=== PATIENT | female | born 1945 | race Caucasian/White ===

== ENCOUNTER 2018-05-03 05:44 | Emergency (ER) | payer MEDICARE, BC ==
[2018-05-03] MEDS ORDERED: Hyoscyamine 0.125 MG Tab.SL SL ONE (06:07)
[2018-05-03] MEDS ORDERED: Aluminum Hydroxide/Magnesium Hydroxide/Simethicone Susp 30 ML Cup PO ONE (06:07)
--- NOTE | 2018-05-03 06:08 | EDM.PDOC ---
<Gil Gallegos - Last Filed: 05/03/18 16:55> ED HPI GENERAL MEDICAL PROBLEM - General Chief Complaint: Chest Pain Stated Complaint: CHEST PAINS Time Seen by Provider: 05/03/18 05:55 - Related Data Allergies Allergy/AdvReac Type Severity Reaction Status Date / Time Penicillins Allergy Rash Verified 05/03/18 08:29 Home Meds: Home Meds Chlorthalidone 25 mg PO DAILY 05/03/18 [History] Losartan [Cozaar] 50 mg PO DAILY 05/03/18 [History] Oxybutynin 5 mg PO DAILY 05/03/18 [History] Course - Vital Signs Last Recorded V/S: Last Vital Signs Temp 36.7 C 05/03/18 05:51 Pulse 53 L 05/03/18 05:51 Resp 18 05/03/18 05:51 BP 160/73 H 05/03/18 05:51 Pulse Ox 96 05/03/18 05:51 - Orders/Labs/Meds Orders: Active Orders 24 hr Category Date Time Status EKG Documentation Completion [RC] STAT Care 05/03/18 06:06 Active Labs: Laboratory Tests 05/03/18 05/03/18 05/03/18 Range/Units 06:35 06:35 06:35 WBC 10.46 H (3.98-10.04) K/mm3 RBC 4.70 (3.98-5.22) M/mm3 Hgb 13.5 (11.2-15.7) gm/L Hct 41.0 (34.1-44.9) % MCV 87.2 (79.4-94.8) fl MCH 28.7 (25.6-32.2) pg MCHC 32.9 (32.2-35.5) g/dl RDW Std Deviation 51.8 H (36.4-46.3) fL Plt Count 235 (182-369) K/mm3 MPV 9.7 (9.4-12.3) fl Neutrophils % (Manual) 65 H (40-60) % Band Neutrophils % 0 (0-10) % Lymphocytes % (Manual) 26 (20-40) % Atypical Lymphs % 0 % Monocytes % (Manual) 2 (2-10) % Eosinophils % (Manual) 5 (0.7-5.8) % Basophils % (Manual) 2 H (0.1-1.2) Platelet Estimate Adequate Plt Morphology Comment Normal RBC Morph Comment Normal PT 10.7 (9.5-12.1) SECONDS INR 0.98 Sodium 142 (136-145) mEq/L Potassium 3.3 L (3.5-5.1) mEq/L Chloride 104 (98-107) mEq/L Carbon Dioxide 28 (21-32) mEq/L Anion Gap 13.3 (5-15) BUN 25 H (7-18) mg/dL Creatinine 1.0 (0.55-1.02) mg/dL Est Cr Clr Drug Dosing 39.04 mL/min Estimated GFR (MDRD) 54 (>60) mL/min BUN/Creatinine Ratio 25.0 H (14-18) Glucose 124 H (83-115) mg/dL Calcium 9.4 (8.5-10.1) mg/dL Magnesium 1.9 (1.8-2.4) mg/dl Total Bilirubin 0.5 (0.2-1.0) mg/dL AST 15 (15-37) U/L ALT 19 (14-59) U/L Alkaline Phosphatase 79 (46-116) U/L CK-MB (CK-2) 0.8 (0-3.6) ng/ml Troponin I < 0.017 (0.00-0.056) ng/mL C-Reactive Protein 0.6 (<1.0) mg/dL NT-Pro-B Natriuret Pep (0-125) pg/mL Total Protein 7.2 (6.4-8.2) g/dl Albumin 3.4 (3.4-5.0) g/dl Globulin 3.8 gm/dL Albumin/Globulin Ratio 0.9 L (1-2) 05/03/18 05/03/18 Range/Units 06:35 09:45 WBC (3.98-10.04) K/mm3 RBC (3.98-5.22) M/mm3 Hgb (11.2-15.7) gm/L Hct (34.1-44.9) % MCV (79.4-94.8) fl MCH (25.6-32.2) pg MCHC (32.2-35.5) g/dl RDW Std Deviation (36.4-46.3) fL Plt Count (182-369) K/mm3 MPV (9.4-12.3) fl Neutrophils % (Manual) (40-60) % Band Neutrophils % (0-10) % Lymphocytes % (Manual) (20-40) % Atypical Lymphs % % Monocytes % (Manual) (2-10) % Eosinophils % (Manual) (0.7-5.8) % Basophils % (Manual) (0.1-1.2) Platelet Estimate Plt Morphology Comment RBC Morph Comment PT (9.5-12.1) SECONDS INR Sodium (136-145) mEq/L Potassium (3.5-5.1) mEq/L Chloride (98-107) mEq/L Carbon Dioxide (21-32) mEq/L Anion Gap (5-15) BUN (7-18) mg/dL Creatinine (0.55-1.02) mg/dL Est Cr Clr Drug Dosing mL/min Estimated GFR (MDRD) (>60) mL/min BUN/Creatinine Ratio (14-18) Glucose (83-115) mg/dL Calcium (8.5-10.1) mg/dL Magnesium (1.8-2.4) mg/dl Total Bilirubin (0.2-1.0) mg/dL AST (15-37) U/L ALT (14-59) U/L Alkaline Phosphatase (46-116) U/L CK-MB (CK-2) 0.7 (0-3.6) ng/ml Troponin I < 0.017 (0.00-0.056) ng/mL C-Reactive Protein (<1.0) mg/dL NT-Pro-B Natriuret Pep 119 (0-125) pg/mL Total Protein (6.4-8.2) g/dl Albumin (3.4-5.0) g/dl Globulin gm/dL Albumin/Globulin Ratio (1-2) Meds: Medications Discontinued Medications Generic Name Dose Route Start Last Admin Trade Name Diazq PRN Reason Stop Dose Admin Al Hydroxide/Mg Hydroxide 30 ml 05/03/18 06:07 05/03/18 06:31 Mag-Al Plus PO 05/03/18 06:08 30 ml ONETIME ONE Administration Hyoscyamine 0.125 mg 05/03/18 06:07 05/03/18 06:31 Hyomax-Sl SL 05/03/18 06:08 0.125 mg ONETIME ONE Administration - Re-Assessments/Exams Free Text/Narrative Re-Assessment/Exam: 05/03/18 08:00. have assumed care from Dr Hernandes after change of shift. I agree with his hx and exam as documented. Her trop, CXR normal. Repeat trop planned for 9:30. 05/03/18 16:55. Repeat troponin also did come back normal, discharge instructions as documented Departure - Departure Time of Disposition: 11:40 Disposition: Home, Self-Care 01 Condition: Fair Clinical Impression: Atypical chest pain Instructions: Nonspecific Chest Pain, [id number] Referrals: Jamie Whiting MD [Primary Care Provider] - Forms: ED Department Discharge Additional Instructions: Continue baby aspirin and other medications as previously prescribed, follow up with Yenny Bailon at the clinic in 2-3 days to get results of your cardiac stress test today. Call for appointment. Return to ED as needed if symptoms worsening in any way. - My Orders Last 24 Hours: My Active Orders 05/03/18 06:06 EKG Documentation Completion [RC] STAT - Assessment/Plan Last 24 Hours: My Active Orders 05/03/18 06:06 EKG Documentation Completion [RC] STAT <Roderick Hernandes - Last Filed: 05/03/18 19:06> ED HPI GENERAL MEDICAL PROBLEM - General Source of Information: Reports: Patient History Limitations: Reports: No Limitations - History of Present Illness INITIAL COMMENTS - FREE TEXT/NARRATIVE: 72-year-old female presents to the ED after experiencing transient retrosternal chest heaviness with a bit of a burning component at about 0530 hrs. this morning. Patient states she couldn't sleep most the night was very restless and uncomfortable. She is booked for an ECG stress test as part of a preoperative assessment this morning at 0645 hrs. The chest pain lasted less than 5 minutes. Really gone upon arriving in the ED. There was associated burping and belching that seemed to help relieve the discomfort. Patient doesn't know she has a hiatal hernia or not. She does get heartburn periodically. She quit smoking cigarettes for the last time about 2 months ago. Before that she had stopped for only about a year. Has a [id number] history of smoking. Apparently on her preoperative assessment her ECG was abnormal suggesting possibility of an old anteroseptal myocardial infarction and therefore ECG stress test recommended. 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 Shultz urologist in [place]. She denies excessive cough or sputum production. Onset: Today Onset Date: 05/03/18 Onset Time: 05:30 (This is right when her alarm clock went off.) Duration: Minutes: Location: Reports: Chest Quality: Reports: Burning (Lower retrosternal chest pressure discomfort with a burning quality to the pain), Pressure Severity: Moderate Improves with: Reports: Other (It went away within about 5 minutes of onset. Socially burping and belching according to the daughter) Worsens with: Reports: None Context: Reports: Other (Occurred while laying flat in bed.). Denies: Activity , Exercise, Lifting, Sick Contact, Trauma Associated Symptoms: Reports: Cough, cough w sputum (Has a chronic cough.), Shortness of Breath, Weakness. 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 Denies: Fever, Chills, Decreased Appetite, Weight Loss HEENT: Reports: Glasses Respiratory: Reports: Shortness of Breath, Wheezing, Cough, Sputum. Denies: Pleuritic Chest Pain, Hemoptysis (Lu sputum production mostly whitish.) Cardiovascular: Reports: Chest Pain, Blood Pressure Problem (See history of present illness), Dyspnea on Exertion (Chronically). Denies: Claudication, Edema, Lightheadedness, Orthopnea ( chronic hypertension) Endocrine: Reports: Fatigue GI/Abdominal: Reports: Constipation : Reports: Incontinence (Urge incontinence.), Urgency Musculoskeletal: Reports: Back Pain (Chronic low back pain), Joint Pain ( Occasional pain in her knees and left hip.) Skin: Reports: No Symptoms Neurological: Reports: No Symptoms Psychiatric: Reports: No Symptoms ED EXAM, GENERAL - Physical Exam Exam: See Below Exam Limited By: No Limitations General Appearance: Alert, WD/WN, Anxious (Mildly anxious. She hates IV sticks.) Eye Exam: Bilateral Eye: Normal Inspection Throat/Mouth: Other Head: Atraumatic, Normocephalic Neck: Normal Inspection, Supple, Non-Tender, Full Range of Motion. No: Carotid Bruit, Lymphadenopathy (L), Lymphadenopathy (R) Respiratory/Chest: No Respiratory Distress, No Accessory Muscle Use, Wheezing ( Mild inspiratory and expiratory wheezes.). No: Lungs Clear, Normal Breath Sounds, Chest Non-Tender, Rales, Rhonchi Cardiovascular: Regular Rate, Rhythm, No Edema, No Gallop, No Murmur, No Rub. No: Normal Peripheral Pulses Peripheral Pulses: 1+: Posterior Tibial (L), Posterior Tibial (R), Dorsalis Pedis (L), Dorsalis Pedis (R) GI/Abdominal: Normal Bowel Sounds, Soft, Non-Tender, No Organomegaly Back Exam: Normal Inspection, Vertebral Tenderness (Please pain throughout the lumbar spine. Very minimal muscle spasm.). No: Full Range of Motion, CVA Tenderness (L), CVA Tenderness (R) Extremities: Normal Inspection, Normal Range of Motion, Non-Tender, No Pedal Edema Neurological: Alert, Oriented, CN II-XII Intact, Normal Cognition Psychiatric: Anxious Skin Exam: Warm, Dry, Intact, Normal Color, No Rash EKG INTERPRETATION EKG Date: 05/03/18 Time: 05:49 Rhythm: Other (Sinus bradycardia) Rate (Beats/Min): 52 [place]: Normal P-Wave: Enlarged (P-wave is inverted V1. Inserted a right atrial hypertrophy pattern.) QRS: Other (There is a nonspecific intraventricular conduction delay pattern. There are near Q waves V1 and V2 consider possibility of old anteroseptal myocardial infarction.) ST-T: Depressed (Mild ST segment depression in V4,V5 and V6 versus repolarization abnormality.) QT: Normal EKG Interpretation Comments: Borderline ECG. Course - Orders/Labs/Meds Orders: Active Orders 24 hr Category Date Time Status EKG Documentation Completion [RC] STAT Care 05/03/18 06:06 Active Labs: Laboratory Tests 05/03/18 05/03/18 05/03/18 Range/Units 06:35 06:35 06:35 WBC 10.46 H (3.98-10.04) K/mm3 RBC 4.70 (3.98-5.22) M/mm3 Hgb 13.5 (11.2-15.7) gm/L Hct 41.0 (34.1-44.9) % MCV 87.2 (79.4-94.8) fl MCH 28.7 (25.6-32.2) pg MCHC 32.9 (32.2-35.5) g/dl RDW Std Deviation 51.8 H (36.4-46.3) fL Plt Count 235 (182-369) K/mm3 MPV 9.7 (9.4-12.3) fl Neutrophils % (Manual) 65 H (40-60) % Band Neutrophils % 0 (0-10) % Lymphocytes % (Manual) 26 (20-40) % Atypical Lymphs % 0 % Monocytes % (Manual) 2 (2-10) % Eosinophils % (Manual) 5 (0.7-5.8) % Basophils % (Manual) 2 H (0.1-1.2) Platelet Estimate Adequate Plt Morphology Comment Normal RBC Morph Comment Normal PT 10.7 (9.5-12.1) SECONDS INR 0.98 Sodium 142 (136-145) mEq/L Potassium 3.3 L (3.5-5.1) mEq/L Chloride 104 (98-107) mEq/L Carbon Dioxide 28 (21-32) mEq/L Anion Gap 13.3 (5-15) BUN 25 H (7-18) mg/dL Creatinine 1.0 (0.55-1.02) mg/dL Est Cr Clr Drug Dosing 39.04 mL/min Estimated GFR (MDRD) 54 (>60) mL/min BUN/Creatinine Ratio 25.0 H (14-18) Glucose 124 H (83-115) mg/dL Calcium 9.4 (8.5-10.1) mg/dL Magnesium 1.9 (1.8-2.4) mg/dl Total Bilirubin 0.5 (0.2-1.0) mg/dL AST 15 (15-37) U/L ALT 19 (14-59) U/L Alkaline Phosphatase 79 (46-116) U/L CK-MB (CK-2) 0.8 (0-3.6) ng/ml Troponin I < 0.017 (0.00-0.056) ng/mL C-Reactive Protein 0.6 (<1.0) mg/dL NT-Pro-B Natriuret Pep (0-125) pg/mL Total Protein 7.2 (6.4-8.2) g/dl Albumin 3.4 (3.4-5.0) g/dl Globulin 3.8 gm/dL Albumin/Globulin Ratio 0.9 L (1-2) 05/03/18 05/03/18 Range/Units 06:35 09:45 WBC (3.98-10.04) K/mm3 RBC (3.98-5.22) M/mm3 Hgb (11.2-15.7) gm/L Hct (34.1-44.9) % MCV (79.4-94.8) fl MCH (25.6-32.2) pg MCHC (32.2-35.5) g/dl RDW Std Deviation (36.4-46.3) fL Plt Count (182-369) K/mm3 MPV (9.4-12.3) fl Neutrophils % (Manual) (40-60) % Band Neutrophils % (0-10) % Lymphocytes % (Manual) (20-40) % Atypical Lymphs % % Monocytes % (Manual) (2-10) % Eosinophils % (Manual) (0.7-5.8) % Basophils % (Manual) (0.1-1.2) Platelet Estimate Plt Morphology Comment RBC Morph Comment PT (9.5-12.1) SECONDS INR Sodium (136-145) mEq/L Potassium (3.5-5.1) mEq/L Chloride (98-107) mEq/L Carbon Dioxide (21-32) mEq/L Anion Gap (5-15) BUN (7-18) mg/dL Creatinine (0.55-1.02) mg/dL Est Cr Clr Drug Dosing mL/min Estimated GFR (MDRD) (>60) mL/min BUN/Creatinine Ratio (14-18) Glucose (83-115) mg/dL Calcium (8.5-10.1) mg/dL Magnesium (1.8-2.4) mg/dl Total Bilirubin (0.2-1.0) mg/dL AST (15-37) U/L ALT (14-59) U/L Alkaline Phosphatase (46-116) U/L CK-MB (CK-2) 0.7 (0-3.6) ng/ml Troponin I < 0.017 (0.00-0.056) ng/mL C-Reactive Protein (<1.0) mg/dL NT-Pro-B Natriuret Pep 119 (0-125) pg/mL Total Protein (6.4-8.2) g/dl Albumin (3.4-5.0) g/dl Globulin gm/dL Albumin/Globulin Ratio (1-2) Meds: Medications Discontinued Medications Generic Name Dose Route Start Last Admin Trade Name Allison PRN Reason Stop Dose Admin Al Hydroxide/Mg Hydroxide 30 ml 05/03/18 06:07 05/03/18 06:31 Mag-Al Plus PO 05/03/18 06:08 30 ml ONETIME ONE Administration Hyoscyamine 0.125 mg 05/03/18 06:07 05/03/18 06:31 Hyomax-Sl SL 05/03/18 06:08 0.125 mg ONETIME ONE Administration - Radiology Interpretation Free Text/Narrative:: 72-year-old female presents to the ED after developing transient retrosternal pressure discomfort at about 0530 hrs. this morning. She is booked for an ECG stress test this morning as part of a preoperative assessment as she has a left kidney mass that needs to be resected. 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 She is therefore booked for stress test. She has a risk factor of hypertension and [id number] history of smoking. She. He did quit smoking completely 2 months ago. 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 There is also a nonspecific intraventricular conduction delay pattern. There is mild ST segment depression V4 to V6 suggestive of a repolarization abnormality versus ischemia. There is also evidence of biatrial hypertrophy. Plan we'll give her Maalox 30 mils by mouth on Levsin 0.125 mg sublingual. Will signs are otherwise stable other than a heart rate that likes to stay around 50 per minute. Sats are 96% on room air BP 155/44. Cardiac markers will be drawn. I will try and find an ECG for comparison purposes. - Re-Assessments/Exams Free Text/Narrative Re-Assessment/Exam: 05/03/18 07:01 Only hematology is back with a total white count of 10.46. Differential 65% neutrophils and no band cells reported. Hemoglobin is 13.5 with hematocrit of 41.0. In light of having no pain I did allow her to go and proceed with her ECG stress test. She will return to the ED for lab results after his testing is completed. Will repeat her troponin and CK-MB fraction at 0930 hrs. Case discussed with Dr. Gallegos at change of shift. He will provide follow-up care in the ED. - My Orders Last 24 Hours: My Active Orders 05/03/18 06:06 EKG Documentation Completion [RC] STAT - Assessment/Plan Last 24 Hours: My Active Orders 05/03/18 06:06 EKG Documentation Completion [RC] STAT
--- NOTE | 2018-05-03 07:41 | CR ---
Chest: Portable view of the chest was obtained. Comparison: Prior chest x-ray of 10/15/08. Heart size and mediastinum are within normal limits for portable technique. Lungs are clear. Bony structures are grossly intact. Slight scoliosis is noted within the spine. Minimal degenerative change is noted within the spine. Impression: 1. Nothing acute is seen on frontal chest x-ray. Diagnostic code #2
--- NOTE | 2018-05-03 09:03 | STRESS ---
REQUESTING PHYSICIAN: DATE: 05/03/2018 PROCEDURE: Stress test. FINDINGS: The Lexiscan protocol was reviewed with the patient including risks, benefits, consent form was signed. Baseline resting EKG demonstrates sinus bradycardia at 50 beats per minute. Resting blood pressure was 137/78. Lexiscan was infused as per protocol, with the patient experiencing immediate pain in the right arm at the infusion site. No evidence of extravasation was noted, with the discomfort resolved over the next 3 minutes. The maximum heart rate achieved was 63 beats per minute, with a maximum blood pressure of 140/85, yielding a double product of 8820. One met of exercise was achieved. Maximum ST-segment depression reached 0.7 mm, and was unaccompanied by chest pain. The patient tolerated the procedure well, was discharged in good condition to the x-ray department to complete the stress test protocol. IMPRESSION: Indeterminate Lexiscan stress test. MMODAL /[id number]
== END 2018-05-03 11:57 | disposition home or self-care (01) ==
LOC: JD.ED 05:44
DX: R07.89 Other chest pain (principal); I10 Essential (primary) hypertension; Z88.0 Allergy status to penicillin; Z79.899 Other long term (current) drug therapy
CPT/HCPCS: 36415; 71045; 80053; 82553; 83735; 83880; 84484; 85007; 85027; 85610; 86140; 93005; 99285; A9270; 93010

== ENCOUNTER 2018-10-10 10:58 | Emergency (ER) | payer MEDICARE, BC ==
--- NOTE | 2018-10-10 12:04 | EDM.PDOC ---
ED HPI GENERAL MEDICAL PROBLEM - General Chief Complaint: Lower Extremity Injury/Pain Stated Complaint: HIG SURG ON MON/LOT OF PAIN Time Seen by Provider: 10/10/18 11:50 Source of Information: Reports: Patient History Limitations: Reports: No Limitations - History of Present Illness INITIAL COMMENTS - FREE TEXT/NARRATIVE: Patient is a 73-year-old female who recently underwent left hip replacement this past Thursday. She was discharged the following day. There was no complications associated with this procedure. Throughout the course of the week she's been experiencing intermittent abdominal pain described as generalized relieved with passing stool. As of today she's had a decrease in her appetite and notes that she passed a hard stool today. She feels constipated. There's been no blood present. In regards to the pain to the left hip this has been chronic controlled with the narcotics and muscle relaxer. Pain is localized with no radiation. There is no swelling to the distal aspect of her left lower extremity. She has been wearing compression socks up until recently. There has been no nausea or vomiting. No documented fever. She is taking MiraLAX and also docusate. She has not taken her pain medications this morning thus the pain to the left hip has grown increasingly worse. She has been ambulating with a walker as instructed. Of note daughter states when the patient takes narcotics and muscle relaxer that she sleeps for extended periods of time and has not been as active as she is supposed to. Otherwise the patient denies any chest pain, short of breath, bloody stool, diarrhea, dark tarry stool, or any additional complaints. 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 Left Hip Pain Score (Numeric/FACES): 2 - Related Data Allergies Allergy/AdvReac Type Severity Reaction Status Date / Time amoxicillin [From Augmentin] Allergy Cannot Verified 10/10/18 11:12 Remember clavulanic acid Allergy Cannot Verified 10/10/18 11:12 [From Augmentin] Remember Home Meds: Home Meds Chlorthalidone 12.5 mg PO DAILY 05/03/18 [History] Aspirin [Ecotrin EC] 81 mg PO DAILY 10/01/18 [History] Cholecalciferol (Vitamin D3) [Vitamin D3] 1,000 unit PO DAILY 10/01/18 [History] Losartan [Cozaar] 25 mg PO DAILY 10/01/18 [History] Oxybutynin Chloride [Ditropan Xl] 10 mg PO DAILY 10/01/18 [History] Rosuvastatin Calcium 20 mg PO DAILY 10/01/18 [History] Acetaminophen/oxyCODONE [Percocet 325-5 MG] 1 - 2 tab PO Q6H PRN #60 tablet [Rx] Bisacodyl [Dulcolax] 5 mg PO DAILY PRN tablet 10/05/18 [Rx] Cyclobenzaprine [Flexeril] 5 mg PO BID PRN #10 tablet 10/05/18 [Rx] Docusate Sodium [Colace] 100 mg PO BID cap 10/05/18 [Rx] Famotidine [Pepcid] 20 mg PO Q12H tablet 10/05/18 [Rx] Nicotine [Nicotine Patch] 7 mg TD DAILY #20 patch 10/05/18 [Rx] Remove Patch 1 ea TRDERM Q72H PRN each 10/05/18 [Rx] Rivaroxaban [Xarelto] 10 mg PO DAILY #35 tablet 10/05/18 [Rx] Sennosides [Senna] 8.6 mg PO BID PRN tablet 10/05/18 [Rx] Past Medical History HEENT History: Reports: Impaired Vision, Other (See Below) Other HEENT History: wears glasses Cardiovascular History: Reports: High Cholesterol, Hypertension Respiratory History: Reports: None Gastrointestinal History: Reports: Colon Polyp, Other (See Below) Other Gastrointestinal History: colitis Genitourinary History: Reports: Urinary Incontinence, Other (See Below) Other Genitourinary History: kidney cancer with surgery to remove, no chemo or radiation needed. 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 Endocrine/Metabolic History: Reports: None, Other (See Below) Other Endocrine/Metabolic History: borderline diabetic Hematologic History: Reports: None Immunologic History: Reports: None Oncologic (Cancer) History: Reports: None Dermatologic History: Reports: Other (See Below) Other Dermatologic History: skin lesion removal , skin grafting from knee - Past Surgical History Head Surgeries/Procedures: Reports: None HEENT Surgical History: Reports: None Cardiovascular Surgical History: Reports: None GI Surgical History: Reports: Colonoscopy, Other (See Below) Other GI Surgeries/Procedures: polypectomy Female Surgical History: Reports: Hysterectomy, Tubal Ligation Endocrine Surgical History: Reports: None Musculoskeletal Surgical History: Reports: None Dermatological Surgical History: Reports: None Social & Family History - Family History Family Medical History: Noncontributory - Tobacco Use Smoking Status *Q: Former Smoker Used Tobacco, but Quit: Yes Month/Year Tobacco Last Used: quit 1 month ago - Caffeine Use Caffeine Use: Reports: Coffee Other Caffeine Use: cappacinno now and then and a pop one every 2 months - Recreational Drug Use Recreational Drug Use: No - Living Situation & Occupation Living situation: Reports: Occupation: Retired Review of Systems - Review of Systems Review Of Systems: See Below Constitutional: Reports: No Symptoms Respiratory: Reports: No Symptoms Cardiovascular: Reports: No Symptoms GI/Abdominal: Reports: Abdominal Pain (Intermittent pain to her abdomen relieved with passing hard stool.), Constipation, Decreased Appetite. Denies: Bloody Stool, Diarrhea, Hematemesis, Nausea, Vomiting Genitourinary: Denies: Dysuria, Hematuria, Incontinence Musculoskeletal: Reports: Other (Left hip pain unchanged relieved with narcotics.) Skin: Reports: Bruising. Denies: Erythema, Lesions Neurological: Reports: No Symptoms, Difficulty Walking. Denies: Dizziness, Numbness, Tingling ED EXAM, GENERAL - Physical Exam Exam: See Below Exam Limited By: No Limitations General Appearance: Alert, WD/WN, No Apparent Distress Ears: Hearing Grossly Normal Nose: Normal Inspection Throat/Mouth: Normal Voice, No Airway Compromise Head: Atraumatic, Normocephalic Neck: Normal Inspection, Supple Respiratory/Chest: No Respiratory Distress, Lungs Clear, Normal Breath Sounds, No Accessory Muscle Use, Chest Non-Tender Cardiovascular: Normal Peripheral Pulses, Regular Rate, Rhythm, No Murmur Peripheral Pulses: 2+: Radial (R) GI/Abdominal: Normal Bowel Sounds, Soft, Non-Tender, No Organomegaly, No Distention Back Exam: Normal Inspection. No: CVA Tenderness (L), CVA Tenderness (R) Extremities: Other (Dressing to the left hip intact with redness around the surgical dressing or drainage present. few old bruises present. No pain along the medial/posterior aspect of the left leg distally into the calf. No decreased ROM of the left knee. Limited range of motion to the left hip. Peripheral pulses intact. No sensory deficits noted. No findings concerning for infection or DVT. ) Neurological: Alert, Oriented, CN II-XII Intact, Normal Cognition, No Motor/ Sensory Deficits. No: Normal Gait Psychiatric: Normal Affect, Normal Mood Skin Exam: Warm, Dry, Intact, Normal Color, No Rash, Ecchymosis Course - Vital Signs Last Recorded V/S: Last Vital Signs Temp 98.5 F 10/10/18 11:12 Pulse 60 10/10/18 11:12 Resp 17 10/10/18 11:12 BP 146/51 H 10/10/18 11:12 Pulse Ox 96 10/10/18 11:12 - Re-Assessments/Exams Free Text/Narrative Re-Assessment/Exam: Initial vital signs are stable. She is afebrile. On exam she has no abdominal pain. Slight discomfort noted to the left hip with some decreased range of motion noted. Dressing intact with no redness or drainage present. She does have some faint bruising along the left inguinal region from recent surgery. No pain or swelling to the distal aspect of the leg and with any palpation of the medial and posterior leg. No sensory deficits noted. Peripheral pulses are intact. Bowel sounds are normoactive. Patient states abdominal discomfort resolved after having a BM which was described as being hard requiring straining. I suspect cause of abdominal discomfort is associated with constipation secondary to her lack of mobility and taking narcotics as well as a muscle relaxer. Patient just started taking MiraLAX yesterday and continues take docusate 2 times a day. I will have patient continue taking MiraLAX one capful every day and introduce prunes within her diet to help facilitate bowel movements and softening her stool. She'll continue with the docusate. I've asked the patient to continue attempting to decrease the usage of any narcotics and also muscle relaxer based on her pain needs. I have offered to obtain some basic labs including CBC, chem 14, CRP, UA, and 2 view of her abdomen and pelvis to which the patient has refused. She has a appointment with orthopedic surgeon for tomorrow. Return precautions were discussed with the patient. She had no further questions or concerns and agreed with plan. Departure - Departure Time of Disposition: 12:08 Disposition: Home, Self-Care 01 Condition: Good Clinical Impression: Constipation due to opioid therapy S/P hip replacement Qualifiers: Laterality: left Qualified Code(s): Z96.642 - Presence of left artificial hip joint - Discharge Information Instructions: Hip Pain, Pain Medicine Instructions, [id number], Preventing Constipation After Surgery Referrals: PCP,Unknown [Ordering Only Provider] - Forms: ED Department Discharge Additional Instructions: Continue taking MiraLAX one capful every day with docusate as prescribed. Utilize prunes as needed through the course today to facilitate bowel movements if feeling constipated. Continue taking the pain medications and muscle relaxer as prescribed. I would start decreasing frequency in the when able to decrease the adverse side effects with taking these meds. Continue to follow instructions laid out by your orthopedic surgeon post surgery. Keep appointment as scheduled for tomorrow with orthopedic surgeon on follow-up. If for any reason you develop any new or worsening symptoms please return back to the ED for reevaluation.
== END 2018-10-10 12:56 | disposition home or self-care (01) ==
LOC: JD.ED 10:58
DX: K59.03 Drug induced constipation (principal); T40.2X5A Adverse effect of other opioids, initial encounter; I10 Essential (primary) hypertension; E78.00 Pure hypercholesterolemia, unspecified; F41.9 Anxiety disorder, unspecified; Z96.642 Presence of left artificial hip joint; Z88.1 Allergy status to other antibiotic agents; Z79.82 Long term (current) use of aspirin; Z87.891 Personal history of nicotine dependence; Z79.899 Other long term (current) drug therapy; Z85.528 Personal history of other malignant neoplasm of kidney
CPT/HCPCS: 99283

== ENCOUNTER 2019-06-19 20:19 | Emergency (ER) | payer MEDICARE, BC ==
[2019-06-19] MEDS ORDERED: Sodium Chloride 0.9% 1,000 ML IV SCH (21:30)
--- NOTE | 2019-06-19 21:34 | EDM.PDOC ---
ED HPI GENERAL MEDICAL PROBLEM - General Chief Complaint: Abdominal Pain Stated Complaint: BACK PAIN AND ABDOMINAL PAIN Time Seen by Provider: 06/19/19 21:12 Source of Information: Reports: Patient History Limitations: Reports: No Limitations - History of Present Illness INITIAL COMMENTS - FREE TEXT/NARRATIVE: Mrs. Root is a very pleasant 73-year-old woman with a past medical history significant for colon polyps, factor V Leiden deficiency on Xarelto, and unaddressed prediabetes who now presents to the ED stating that she developed abdominal pain felt across her entire upper abdomen around 16:00 this afternoon. She is unable to describe the character of the pain other than "steady". It does not radiate. It may be worse when she is supine, possibly better when upright, otherwise, she has not identified any modifiers. No associated nausea, vomiting, constipation, diarrhea, or urinary symptoms. No prior similar symptoms, although the patient states that she occasionally gets some shooting pain in various places of her abdomen. She states that she has felt hot and cold over the past 3 weeks, but she otherwise denies recent fever, sore throat, ear pain, nasal or sinus congestion, cough, dyspnea, chest pain, palpitations, recent weight gain or weight loss, recent bloody bowel movements or black bowel movements, recent joint aches, headaches, or rashes. The patient states that she took 2 Aleve around 16:30 today, without any relief of her symptoms. The patient also reports low back pain for the past 3 months, following a fall. She has not had medical evaluation of this. Here in the ED, the patient's initial BP is found to be mildly elevated at 150/ 69, with bradycardia at 58, otherwise, she is hemodynamically stable, afebrile, saturating 97% on room air. The patient's PCP is JOJO Swartz. Right Upper Abdomen Pain Score (Numeric/FACES): 8 - Related Data Allergies Allergy/AdvReac Type Severity Reaction Status Date / Time amoxicillin [From Augmentin] Allergy Severe Cannot Verified 06/19/19 20:31 Remember clavulanic acid Allergy Severe Cannot Verified 06/19/19 20:31 [From Augmentin] Remember Home Meds: Home Meds Chlorthalidone 12.5 mg PO DAILY 05/03/18 [History] Aspirin [Ecotrin EC] 81 mg PO DAILY 10/01/18 [History] Cholecalciferol (Vitamin D3) [Vitamin D3] 1,000 unit PO DAILY 10/01/18 [History] Losartan [Cozaar] 25 mg PO DAILY 10/01/18 [History] Oxybutynin Chloride [Ditropan Xl] 10 mg PO DAILY 10/01/18 [History] Rosuvastatin Calcium 20 mg PO DAILY 10/01/18 [History] Acetaminophen/oxyCODONE [Percocet 325-5 MG] 1 - 2 tab PO Q6H PRN #60 tablet [Rx] Cyclobenzaprine [Flexeril] 5 mg PO BID PRN #10 tablet 10/05/18 [Rx] Docusate Sodium [Colace] 100 mg PO BID cap 10/05/18 [Rx] Famotidine [Pepcid] 20 mg PO Q12H tablet 10/05/18 [Rx] Nicotine [Nicotine Patch] 7 mg TD DAILY #20 patch 10/05/18 [Rx] Remove Patch 1 ea TRDERM Q72H PRN each 10/05/18 [Rx] Rivaroxaban [Xarelto] 10 mg PO DAILY #35 tablet 10/05/18 [Rx] Sennosides [Senna] 8.6 mg PO BID PRN tablet 10/05/18 [Rx] bisacodyL [Dulcolax] 5 mg PO DAILY PRN tablet 10/05/18 [Rx] Past Medical History HEENT History: Reports: Impaired Vision Other HEENT History: wears glasses Cardiovascular History: Reports: High Cholesterol, Hypertension Gastrointestinal History: Reports: Colon Polyp Genitourinary History: Reports: Urinary Incontinence Endocrine/Metabolic History: Reports: Other (See Below) (Prediabetes, untreated) Hematologic History: Reports: Anticoagulation Therapy (On Xarelto for factor V Leiden deficiency) Oncologic (Cancer) History: Reports: Renal (s/p nephrectomy) - Past Surgical History GI Surgical History: Reports: Cholecystectomy (before 1999), Colonoscopy (x 1), Polypectomy Female Surgical History: Reports: Hysterectomy (complete), Tubal Ligation Musculoskeletal Surgical History: Reports: Hip Replacement (left) Oncologic Surgical History: Reports: Other (See Below) (Left nephrectomy) Social & Family History - Family History Family Medical History: Noncontributory - Tobacco Use Smoking Status *Q: Former Smoker Years of Tobacco use: 20 Packs/Tins Daily: 1 Month/Year Tobacco Last Used: Quit May 2019 - Caffeine Use Caffeine Use: Reports: Coffee Other Caffeine Use: cappacinno now and then and a pop one every 2 months - Alcohol Use Alcohol Use History: No - Recreational Drug Use Recreational Drug Use: No - Living Situation & Occupation Living situation: Reports: , Alone Occupation: Retired ED ROS GENERAL - Review of Systems Review Of Systems: Comprehensive ROS is negative, except as noted in HPI. ED EXAM, GI/ABD - Physical Exam Exam: See Below Exam Limited By: No Limitations General Appearance: Alert, WD/WN, No Apparent Distress Eyes: Bilateral: Normal Appearance, EOMI Ears: Normal External Exam, Hearing Grossly Normal Nose: Normal Inspection Throat/Mouth: Normal Inspection, Normal Lips, Normal Voice, No Airway Compromise Head: Atraumatic, Normocephalic Neck: Normal Inspection, Full Range of Motion Respiratory/Chest: No Respiratory Distress, No Accessory Muscle Use, Rhonchi ( scattered). No: Decreased Breath Sounds, Crackles, Wheezing, Stridor, Prolonged Expiration Cardiovascular: Normal Peripheral Pulses, Regular Rate, Rhythm, No Edema, No Gallop, No JVD, No Murmur, No Rub GI/Abdominal Exam: Normal Bowel Sounds, Soft, No Organomegaly, No Distention, No Abnormal Bruit, No Mass, Tender (Central/periumbilical only. Nontender elsewhere, including the upper abdomen), Other (Well-healed midline abdominal surgical wound) (Female) Exam: Deferred Rectal (Female) Exam: Deferred Back Exam: Normal Inspection, Full Range of Motion. No: CVA Tenderness (L), CVA Tenderness (R) Extremities: Normal Inspection, Normal Range of Motion, No Pedal Edema, Normal Capillary Refill Neurological: Alert, Oriented, Normal Cognition, No Motor/Sensory Deficits Psychiatric: Normal Affect Skin Exam: Warm, Dry, Intact, Normal Color, No Rash Course - Vital Signs Last Recorded V/S: Last Vital Signs Temp 36.5 C 06/19/19 20:29 Pulse 58 L 06/19/19 20:29 Resp 16 06/19/19 20:29 BP 150/69 H 06/19/19 20:29 Pulse Ox 97 06/19/19 20:29 - Orders/Labs/Meds Orders: Active Orders 24 hr Category Date Time Status Abdomen Pelvis w Cont [CT] Stat Exams 06/19/19 21:25 Taken Sodium Chloride 0.9% [Normal Saline] 1,000 ml Med 06/19/19 21:30 Active IV ASDIRECTED Sodium Chloride 0.9% [Saline Flush] Med 06/19/19 23:00 Active 10 ml FLUSH ONETIME PRN Medication Orders Sodium Chloride (Normal Saline) 1,000 mls @ 125 mls/hr IV ASDIRECTED LUI Last Admin: 06/19/19 21:58 Dose: 125 mls/hr Sodium Chloride (Saline Flush) 10 ml FLUSH ONETIME PRN PRN Reason: KEEP VEIN OPEN Last Admin: 06/19/19 23:08 Dose: 10 ml Labs: Laboratory Tests 06/19/19 06/19/19 06/19/19 Range/Units 21:58 21:58 23:05 WBC 12.75 H (3.98-10.04) K/mm3 RBC 4.70 (3.98-5.22) M/mm3 Hgb 13.2 D (11.2-15.7) gm/dl Hct 40.9 (34.1-44.9) % MCV 87.0 (79.4-94.8) fl MCH 28.1 (25.6-32.2) pg MCHC 32.3 (32.2-35.5) g/dl RDW Std Deviation 50.7 H (36.4-46.3) fL Plt Count 267 (182-369) K/mm3 MPV 10.0 (9.4-12.3) fl Neutrophils % (Manual) 59 (40-60) % Band Neutrophils % 0 (0-10) % Lymphocytes % (Manual) 35 (20-40) % Atypical Lymphs % 0 % Monocytes % (Manual) 4 (2-10) % Eosinophils % (Manual) 2 (0.7-5.8) % Basophils % (Manual) 0 L (0.1-1.2) Platelet Estimate Adequate Plt Morphology Comment Normal RBC Morph Comment Normal Sodium 142 (136-145) mEq/L Potassium 4.3 (3.5-5.1) mEq/L Chloride 104 (98-107) mEq/L Carbon Dioxide 32 (21-32) mEq/L Anion Gap 10.3 (5-15) BUN 27 H (7-18) mg/dL Creatinine 1.1 H (0.55-1.02) mg/dL Est Cr Clr Drug Dosing 34.95 mL/min Estimated GFR (MDRD) 48 (>60) mL/min BUN/Creatinine Ratio 24.5 H (14-18) Glucose 117 H (83-115) mg/dL Calcium 9.2 (8.5-10.1) mg/dL Total Bilirubin 0.5 (0.2-1.0) mg/dL AST 25 (15-37) U/L ALT 21 (14-59) U/L Alkaline Phosphatase 122 H (46-116) U/L Total Protein 7.2 (6.4-8.2) g/dl Albumin 3.5 (3.4-5.0) g/dl Globulin 3.7 gm/dL Albumin/Globulin Ratio 1.0 (1-2) Lipase 202 (73-393) U/L Urine Color Cancelled Urine Appearance Cancelled Urine pH Cancelled Ur Specific [place] Cancelled Urine Protein Cancelled Urine Glucose (UA) Cancelled Urine Ketones Cancelled Urine Occult Blood Cancelled Urine Nitrite Cancelled Urine Bilirubin Cancelled Urine Urobilinogen Cancelled Ur Leukocyte Esterase Cancelled U Hyaline Cast (Auto) Cancelled Urine RBC Cancelled Urine WBC Cancelled Urine WBC Clumps Cancelled Ur Epithelial Cells Cancelled Ur Squamous Epith Cells Cancelled Ur Transition Epith Cell Cancelled Ur Renal Epithelial Cell Cancelled [place] Biurate Crystals Cancelled Calcium Carbonate Cryst Cancelled Calcium Phosphate Cryst Cancelled Calcium Oxalate Crystal Cancelled Leucine Crystals Cancelled Cystine Crystals Cancelled Uric Acid Crystals Cancelled Triple Phos Crystals Cancelled Sodium Urate Crystals Cancelled Tyrosine Crystals Cancelled Other Crystals Cancelled Amorphous Sediment Cancelled Urine Bacteria Cancelled Epithelial Casts Cancelled Fatty Casts Cancelled Fine Granular Casts Cancelled Coarse Granular Casts Cancelled Waxy Casts Cancelled Broad Casts Cancelled RBC Casts Cancelled WBC Casts Cancelled Urine Mucus Cancelled Urine Other Cancelled Urine Trichomonas Cancelled Urine Yeast Cancelled Ur Yeast w Hyphae Cancelled Urine Yeast (Budding) Cancelled Ur Oval Fat Bodies Cancelled Urinalysis Comment Cancelled 06/19/19 Range/Units 23:30 WBC (3.98-10.04) K/mm3 RBC (3.98-5.22) M/mm3 Hgb (11.2-15.7) gm/dl Hct (34.1-44.9) % MCV (79.4-94.8) fl MCH (25.6-32.2) pg MCHC (32.2-35.5) g/dl RDW Std Deviation (36.4-46.3) fL Plt Count (182-369) K/mm3 MPV (9.4-12.3) fl Neutrophils % (Manual) (40-60) % Band Neutrophils % (0-10) % Lymphocytes % (Manual) (20-40) % Atypical Lymphs % % Monocytes % (Manual) (2-10) % Eosinophils % (Manual) (0.7-5.8) % Basophils % (Manual) (0.1-1.2) Platelet Estimate Plt Morphology Comment RBC Morph Comment Sodium (136-145) mEq/L Potassium (3.5-5.1) mEq/L Chloride (98-107) mEq/L Carbon Dioxide (21-32) mEq/L Anion Gap (5-15) BUN (7-18) mg/dL Creatinine (0.55-1.02) mg/dL Est Cr Clr Drug Dosing mL/min Estimated GFR (MDRD) (>60) mL/min BUN/Creatinine Ratio (14-18) Glucose (83-115) mg/dL Calcium (8.5-10.1) mg/dL Total Bilirubin (0.2-1.0) mg/dL AST (15-37) U/L ALT (14-59) U/L Alkaline Phosphatase (46-116) U/L Total Protein (6.4-8.2) g/dl Albumin (3.4-5.0) g/dl Globulin gm/dL Albumin/Globulin Ratio (1-2) Lipase (73-393) U/L Urine Color Yellow Urine Appearance Clear Urine pH 7.0 Ur Specific [place] 1.015 Urine Protein Negative Urine Glucose (UA) Negative Urine Ketones Negative Urine Occult Blood 2+ H Urine Nitrite Negative Urine Bilirubin Negative Urine Urobilinogen 0.2 Ur Leukocyte Esterase Negative U Hyaline Cast (Auto) Urine RBC 10-20 H Urine WBC 0-5 Urine WBC Clumps Ur Epithelial Cells 0-5 Ur Squamous Epith Cells Ur Transition Epith Cell Ur Renal Epithelial Cell [place] Biurate Crystals Calcium Carbonate Cryst Calcium Phosphate Cryst Calcium Oxalate Crystal Leucine Crystals Cystine Crystals Uric Acid Crystals Triple Phos Crystals Sodium Urate Crystals Tyrosine Crystals Other Crystals Amorphous Sediment Urine Bacteria Rare Epithelial Casts Fatty Casts Fine Granular Casts Coarse Granular Casts Waxy Casts Broad Casts RBC Casts WBC Casts Urine Mucus Rare Urine Other Urine Trichomonas Urine Yeast Ur Yeast w Hyphae Urine Yeast (Budding) Ur Oval Fat Bodies Urinalysis Comment Meds: Medications Generic Name Dose Route Start Last Admin Trade Name Freq PRN Reason Stop Dose Admin Sodium Chloride 1,000 mls @ 125 mls/hr 06/19/19 21:30 06/19/19 21:58 Normal Saline IV 125 mls/hr ASDIRECTED LUI Administration Sodium Chloride 10 ml 06/19/19 23:00 06/19/19 23:08 Saline Flush FLUSH 10 ml ONETIME PRN Administration KEEP VEIN OPEN Discontinued Medications Generic Name Dose Route Start Last Admin Trade Name Freq PRN Reason Stop Dose Admin Diatrizoate Meglum/Diatrizoate Sod 90 ml 06/19/19 23:00 06/19/19 23:08 Gastrografin 37% PO 06/19/19 23:01 90 ml ONETIME ONE Administration Iopamidol 100 ml 06/19/19 23:00 06/19/19 23:08 Isovue-300 (61%) IVPUSH 06/19/19 23:01 100 ml ONETIME ONE Administration - Re-Assessments/Exams Free Text/Narrative Re-Assessment/Exam: 06/19/19 21:27 As above, the patient presents with upper abdominal pain since around 16:00 afternoon, and on examination, she has central abdominal tenderness, although no tenderness elsewhere on her abdomen. No CVA tenderness. I have ordered a work-up that includes blood work, a urinalysis by quick catheter, and a CT of the abdomen and pelvis with oral and IV contrast. In the meantime, the patient will be given IV fluid, however, her pain is quite minimal, and the patient is not requiring pain medication at this time. The patient is also complaining of some low back pain since a fall about [address] scan should get a good look at her lumbar spine, as well. 06/19/19 23:43 CT of the abdomen and pelvis with oral and IV contrast is read by [facility] as: Moderate gastric distention without etiology evident on this study. Fluid/air-filled small bowel and colon without dilation or wall thickening. Consider gastroenteritis or diarrheal disease Chronic changes as above 06/20/19 00:03 The patient's CBC is remarkable for WBC count mildly elevated at 12.75, but with 0% bandemia, and the remainder of her CBC being unremarkable. Her CMP is remarkable for a BUN/Cr elevated at 27/1.1, and a blood glucose slightly elevated 117. Her alkaline phosphatase is mildly elevated at 122, with the remainder of her CMP being unremarkable. Her lipase is within normal limits at 122. Her urinalysis is remarkable for 2+ occult blood with 10-20 RBCs, leukocyte Estrace negative with 0-5 WBCs, nitrite negative with rare bacteria, and 0-5 squamous epithelial cells. 06/20/19 00:09 Test results discussed with the patient. The etiology of the patient's gastric distention and air-fluid levels in her small bowel and colon is not known. Patient reiterated that she has not had any recent nausea, vomiting, or diarrhea. I offered to place her into observation, where she could be seen by the Surgeon in the morning, however, she would prefer to go home and follow-up with her PCP. Departure - Departure Time of Disposition: 00:10 Disposition: Home, Self-Care 01 Condition: Good Clinical Impression: Abdominal pain of unknown etiology - Discharge Information *PRESCRIPTION DRUG MONITORING PROGRAM REVIEWED*: Not Applicable *COPY OF PRESCRIPTION DRUG MONITORING REPORT IN PATIENT DANITA: Not Applicable Referrals: Quin Sommers PA-C [Primary Care Provider] - Forms: ED Department Discharge Additional Instructions: You were seen in the emergency room after developing upper abdominal pain this afternoon. Work-up in the ER included blood work, a urinalysis, and a CT scan of your abdomen and pelvis with oral and IV contrast. The CT scan found distention of your stomach, as well as air-fluid levels in your small and large intestine, however, the cause of these is not known. Placing you into observation so that you could be seen by the Surgeon in the morning was offered, but declined. We recommend that you follow-up with your PCP, JOJO Swartz, at the next available appointment. If any other problems, please do not hesitate to return to the ER. Sepsis Event Note - Evaluation Sepsis Screening Result: No Definite Risk - Focused Exam Vital Signs: Vital Signs Temp Pulse Resp BP Pulse Ox 06/19/19 20:29 36.5 C 58 L 16 150/69 H 97 Date Exam was Performed: 06/20/19 Time Exam was Performed: 00:03 - My Orders Last 24 Hours: My Active Orders 06/19/19 21:25 Abdomen Pelvis w Cont [CT] Stat 06/19/19 21:30 Sodium Chloride 0.9% [Normal Saline] 1,000 ml IV ASDIRECTED 06/19/19 23:00 Sodium Chloride 0.9% [Saline Flush] 10 ml FLUSH ONETIME PRN - Assessment/Plan Last 24 Hours: My Active Orders 06/19/19 21:25 Abdomen Pelvis w Cont [CT] Stat 06/19/19 21:30 Sodium Chloride 0.9% [Normal Saline] 1,000 ml IV ASDIRECTED 06/19/19 23:00 Sodium Chloride 0.9% [Saline Flush] 10 ml FLUSH ONETIME PRN
[2019-06-19] MEDS ORDERED: Sodium Chloride 0.9% 10 ML Syringe FLUSH PRN (23:00)
[2019-06-19] MEDS ORDERED: Diatrizoate Meglumine/Diatrizoate Sodium 37% 120 ML Bottle PO ONE (23:00)
[2019-06-19] MEDS ORDERED: Iopamidol 612 MG/ML 100 ML Bottle IVPUSH ONE (23:00)
--- NOTE | 2019-06-20 06:04 | CT ---
CT abdomen and pelvis Technique: Multiple axial sections were obtained from above the dome of the diaphragm inferiorly through the pubic symphysis. Intravenous contrast and oral contrast was utilized. Delayed images were also obtained through the bladder. Comparison: No prior abdominal imaging is available. Findings: The visualized lung bases show nothing acute. Small hiatal hernia is noted. Surgical clips are noted from prior cholecystectomy. Liver contains no focal parenchymal abnormality. Spleen appears within normal limits. Adrenal glands show no nodule. Surgical clips are seen around the upper left kidney compatible with prior renal surgery. Right kidney appears unremarkable. Pancreas appears normal. Aorta shows atherosclerotic change without aneurysm. No retroperitoneal adenopathy or mesenteric abnormalities are seen. No pelvic mass or adenopathy is identified. Appendix is seen which is normal in size. Contrast is noted on delayed images within both sides of the bladder. Mild artifact is noted from left hip prosthesis. Scattered degenerative change is noted within the spine. Diverticuli are seen within the sigmoid colon without diverticulitis. Impression: 1. Findings as noted above. 2. Nothing acute is definitely appreciated. Diagnostic code #2 This report was dictated in MDT I agree with preliminary report from [facility], finalized on default valueCentral Daylight Time
== END 2019-06-20 00:28 | disposition home or self-care (01) ==
LOC: JD.ED 20:19
DX: R10.11 Right upper quadrant pain (principal); E78.00 Pure hypercholesterolemia, unspecified; I10 Essential (primary) hypertension; Z79.01 Long term (current) use of anticoagulants; Z79.82 Long term (current) use of aspirin; Z79.899 Other long term (current) drug therapy; Z88.1 Allergy status to other antibiotic agents; Z87.891 Personal history of nicotine dependence
CPT/HCPCS: 36415; 74177; 74177-26; 80053; 81001; 83690; 85007; 85027; 99284; 99284-25; J7030; Q9963; Q9967

== ENCOUNTER 2019-11-19 14:04 | Emergency (ER) | payer MEDICARE, BC ==
[2019-11-19] MEDS ORDERED: cefTRIAXone 2 GM in Sodium Chloride 0.9% 100 ML IV ONE (14:32)
--- NOTE | 2019-11-19 16:43 | EDM.PDOC ---
ED HPI GENERAL MEDICAL PROBLEM - General Chief Complaint: ENT Problem Stated Complaint: L SIDE FACIAL REDNESS AND SWELLING Time Seen by Provider: 11/19/19 14:20 Source of Information: Reports: Patient History Limitations: Reports: No Limitations - History of Present Illness INITIAL COMMENTS - FREE TEXT/NARRATIVE: Patient is a 74-year-old female presenting to the emergency department with complaints of redness and swelling to the left side of her face. She states a few weeks back she had cut her upper inner lip on her tooth. She has had some redness and swelling to her lip and left side of her face for approximate the last week. She was seen at the [facility] on afternoon. She was started on doxycycline and clindamycin for treatment of cellulitis. She states that she feels that the redness and swelling is getting worse rather than better. She reports that she took a dose of the antibiotics night, and entire course on Thursday, and just 1 dose this morning. She denies any fever, chills, nausea, or vomiting. Left Face/Facial Pain Score (Numeric/FACES): 9 - Related Data Allergies Allergy/AdvReac Type Severity Reaction Status Date / Time amoxicillin [From Augmentin] Allergy Severe Cannot Verified 11/19/19 14:19 Remember clavulanic acid Allergy Severe Cannot Verified 11/19/19 14:19 [From Augmentin] Remember Home Meds: Home Meds Chlorthalidone 12.5 mg PO DAILY 05/03/18 [History] Aspirin [Ecotrin EC] 81 mg PO DAILY 10/01/18 [History] Cholecalciferol (Vitamin D3) [Vitamin D3] 1,000 unit PO DAILY 10/01/18 [History] Losartan [Cozaar] 25 mg PO DAILY 10/01/18 [History] Oxybutynin Chloride [Ditropan Xl] 10 mg PO DAILY 10/01/18 [History] Rosuvastatin Calcium 20 mg PO DAILY 10/01/18 [History] Acetaminophen/oxyCODONE [Percocet 325-5 MG] 1 - 2 tab PO Q6H PRN #60 tablet 10/05/18 [Rx] Cyclobenzaprine [Flexeril] 5 mg PO BID PRN #10 tablet 10/05/18 [Rx] Docusate Sodium [Colace] 100 mg PO BID cap 10/05/18 [Rx] Famotidine [Pepcid] 20 mg PO Q12H tablet 10/05/18 [Rx] Nicotine [Nicotine Patch] 7 mg TD DAILY #20 patch 10/05/18 [Rx] Remove Patch 1 ea TRDERM Q72H PRN each 10/05/18 [Rx] Rivaroxaban [Xarelto] 10 mg PO DAILY #35 tablet 10/05/18 [Rx] Sennosides [Senna] 8.6 mg PO BID PRN tablet 10/05/18 [Rx] bisacodyL [Dulcolax] 5 mg PO DAILY PRN tablet 10/05/18 [Rx] Past Medical History HEENT History: Reports: Impaired Vision Other HEENT History: wears glasses Cardiovascular History: Reports: High Cholesterol, Hypertension Respiratory History: Reports: None Gastrointestinal History: Reports: Colon Polyp Other Gastrointestinal History: colitis Genitourinary History: Reports: Urinary Incontinence Other Genitourinary History: kidney cancer with surgery to remove, no chemo or radiation needed. 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 Endocrine/Metabolic History: Reports: Other (See Below) (Prediabetes, untreated) Other Endocrine/Metabolic History: borderline diabetic Hematologic History: Reports: Anticoagulation Therapy (On Xarelto for factor V Leiden deficiency) Immunologic History: Reports: None Oncologic (Cancer) History: Reports: Renal (s/p nephrectomy) Dermatologic History: Reports: Other (See Below) Other Dermatologic History: skin lesion removal , skin grafting from knee - Past Surgical History GI Surgical History: Reports: Cholecystectomy (before 1999), Colonoscopy (x 1), Polypectomy Female Surgical History: Reports: Hysterectomy (complete), Tubal Ligation Musculoskeletal Surgical History: Reports: Hip Replacement (left) Oncologic Surgical History: Reports: Other (See Below) (Left nephrectomy) Social & Family History - Family History Family Medical History: Noncontributory - Caffeine Use Caffeine Use: Reports: Coffee Other Caffeine Use: cappacinno now and then and a pop one every 2 months - Living Situation & Occupation Living situation: Reports: , Alone Occupation: Retired ED ROS GENERAL - Review of Systems Review Of Systems: See Below Constitutional: Reports: No Symptoms. Denies: Fever, Chills, Weakness HEENT: Reports: No Symptoms Respiratory: Reports: No Symptoms Cardiovascular: Reports: No Symptoms Endocrine: Reports: No Symptoms GI/Abdominal: Reports: No Symptoms. Denies: Nausea, Vomiting : Reports: No Symptoms Musculoskeletal: Reports: No Symptoms Skin: Reports: Other (Redness and swelling to the left side of her face.) Neurological: Reports: No Symptoms Psychiatric: Reports: No Symptoms Hematologic/Lymphatic: Reports: No Symptoms Immunologic: Reports: No Symptoms ED EXAM, SKIN/RASH Exam: See Below General Appearance: Alert, WD/WN, No Apparent Distress Throat/Mouth: Normal Inspection, Normal Lips, Normal Gums, Normal Oropharynx, Normal Voice, No Airway Compromise, Other (Numerous mid thing missing teeth. No redness or swelling to the gingiva or gums. She denies any pain within her mouth.) Respiratory/Chest: No Respiratory Distress, Lungs Clear, Normal Breath Sounds, No Accessory Muscle Use, Chest Non-Tender Cardiovascular: Normal Peripheral Pulses, Regular Rate, Rhythm, No Edema, No Gallop, No JVD, No Murmur, No Rub GI/Abdominal: Normal Bowel Sounds, Soft, Non-Tender, No Organomegaly, No Distention, No Abnormal Bruit, No Mass Skin: Other (Redness and mild swelling to the tissues of the left face from below the eye to the chin. Area is mildly chapped. She states it is itchy but not painful. Denies any pain in her mouth.) Course - Vital Signs Last Recorded V/S: Last Vital Signs Temp 98.2 F 11/19/19 14:15 Pulse 65 11/19/19 14:15 Resp 18 11/19/19 14:15 BP 169/69 H 11/19/19 14:15 Pulse Ox 95 11/19/19 14:15 - Orders/Labs/Meds Labs: Laboratory Tests 11/19/19 11/19/19 Range/Units 15:50 15:50 WBC 15.45 H (3.98-10.04) K/mm3 RBC 4.94 (3.98-5.22) M/mm3 Hgb 14.0 (11.2-15.7) gm/dl Hct 43.2 (34.1-44.9) % MCV 87.4 (79.4-94.8) fl MCH 28.3 (25.6-32.2) pg MCHC 32.4 (32.2-35.5) g/dl RDW Std Deviation 52.4 H (36.4-46.3) fL Plt Count 311 (182-369) K/mm3 MPV 9.8 (9.4-12.3) fl Neut % (Auto) 68.9 (34.0-71.1) % Lymph % (Auto) 20.2 (19.3-51.7) % [place] % (Auto) 6.8 (4.7-12.5) % Eos % (Auto) 3.2 (0.7-5.8) Baso % (Auto) 0.5 (0.1-1.2) % Neut # (Auto) 10.65 H (1.56-6.13) K/mm3 Lymph # (Auto) 3.12 (1.18-3.74) K/mm3 [place] # (Auto) 1.05 H (0.24-0.36) K/mm3 Eos # (Auto) 0.49 H (0.04-0.36) K/mm3 Baso # (Auto) 0.08 (0.01-0.08) K/mm3 Manual Slide Review Abnormal smear Sodium 141 (136-145) mEq/L Potassium 3.3 L (3.5-5.1) mEq/L Chloride 102 (98-107) mEq/L Carbon Dioxide 30 (21-32) mEq/L Anion Gap 12.3 (5-15) BUN 29 H (7-18) mg/dL Creatinine 1.1 H (0.55-1.02) mg/dL Est Cr Clr Drug Dosing 34.41 mL/min Estimated GFR (MDRD) 48 (>60) mL/min BUN/Creatinine Ratio 26.4 H (14-18) Glucose 113 (83-115) mg/dL Calcium 10.0 (8.5-10.1) mg/dL Total Bilirubin 0.5 (0.2-1.0) mg/dL AST 21 (15-37) U/L ALT 38 (14-59) U/L Alkaline Phosphatase 99 (46-116) U/L C-Reactive Protein 0.6 (<1.0) mg/dL Total Protein 7.6 (6.4-8.2) g/dl Albumin 3.7 (3.4-5.0) g/dl Globulin 3.9 gm/dL Albumin/Globulin Ratio 1.0 (1-2) Meds: Medications Discontinued Medications Generic Name Dose Route Start Last Admin Trade Name Allison PRN Reason Stop Dose Admin Ceftriaxone Sodium 2 gm/ 100 mls @ 200 mls/hr 11/19/19 14:32 11/19/19 15:47 Sodium Chloride IV 11/19/19 15:01 200 mls/hr ONETIME ONE Administration - Re-Assessments/Exams Free Text/Narrative Re-Assessment/Exam: Patient is a 74-year-old female presenting to the emergency department with complaints of a cellulitis to her left face. She states she is been having some redness, warmth, and swelling for a little over a week. Denies any pain within her mouth. She was seen at the walk-in clinic on and started on antibiotics of clindamycin and doxycycline. She only took 1 dose of the antibiotics evening, a full dose yesterday, and has taken 1 dose today so far. She states that the redness and warmth appears to be worse than it was on . She denies any signs of systemic infection including fever, chills, nausea, vomiting, or dizziness. Case discussed with Dr. Greta MD. He recommended that we give a dose of IV Rocephin in ER and have her continue to take her doxycycline and clindamycin as previously prescribed as these antibiotics provide good coverage for most bacterial pathogens.. She should begin to see improvement over the next couple days with these medications. 11/19/19 16:38 Hematology was significant for WBC elevated at 15.45, potassium 3.3, BUN 29, creatinine 1.1. CRP was normal at 0.6. Patient has received 2 g of IV Rocephin in the emergency department. We will have her continue her clindamycin and doxycycline as previously prescribed. I did give her strict return precautions that if over the course the next few days this continues to worsen or she develops signs of a systemic infection including fever, chills, nausea, vomiting, dizziness, or any other concerning symptoms, she should return to the emergency department for reevaluation. She is in agreement with this plan. Discharge instructions as documented. Departure - Departure Time of Disposition: 16:41 Disposition: Home, Self-Care 01 Condition: Good Clinical Impression: Cellulitis Qualifiers: Site of cellulitis: face Qualified Code(s): L03.211 - Cellulitis of face - Discharge Information *PRESCRIPTION DRUG MONITORING PROGRAM REVIEWED*: No *COPY OF PRESCRIPTION DRUG MONITORING REPORT IN PATIENT DANITA: No Instructions: Cellulitis, Adult Referrals: Quin Sommers PA-C [Primary Care Provider] - Forms: ED Department Discharge Additional Instructions: You were seen in the emergency department today with concerns of a worsening infection to the skin of your left face. It is likely that while the antibiotics you were started on should be adequate to control the infection, they have not had time to get adequately within your system and start working on the infection. While in the ER, you received a dose of IV Rocephin which is an antibiotic. Blood work was done and did show a slightly elevated white blood cell count consistent with infection but was otherwise normal. Recommend that you continue to take your doxycycline and clindamycin that was previously prescribed. Continue to monitor the area. If you fail to see improvement over the course of the next couple days, you should be re-seen either in the clinic or in the emergency department. If you develop signs of a systemic infection including fever, chills, nausea, vomiting, dizziness, or any other symptoms of concern, you should return to the emergency department for reevaluation. Sepsis Event Note (ED) - Evaluation Sepsis Screening Result: No Definite Risk
== END 2019-11-19 17:00 | disposition home or self-care (01) ==
LOC: JD.ED 14:04
DX: L03.211 Cellulitis of face (principal); E78.00 Pure hypercholesterolemia, unspecified; I10 Essential (primary) hypertension; Z79.01 Long term (current) use of anticoagulants; Z88.1 Allergy status to other antibiotic agents; Z79.82 Long term (current) use of aspirin; Z79.899 Other long term (current) drug therapy
CPT/HCPCS: 36415; 80053; 85025; 86140; 96365; 99283; J0696; J7050

== ENCOUNTER 2019-12-19 12:33 | Emergency (ER) | payer MEDICARE, BC ==
--- NOTE | 2019-12-19 13:51 | EDM.PDOC ---
ED HPI GENERAL MEDICAL PROBLEM - General Chief Complaint: Gastrointestinal Problem Stated Complaint: ABDOMINAL PAIN Time Seen by Provider: 12/19/19 13:08 Source of Information: Reports: Patient, RN Notes Reviewed - History of Present Illness INITIAL COMMENTS - FREE TEXT/NARRATIVE: 74 yr old female with onset of diarrhea 3 days ago. Very occasional cough. She has a daughter and granddaughter in a different home ill with covid of about 10 to 14 days duration. Possible exposure as there were beginning to become ill. She did have chills many days ago. No obvious fever. No abd pain at this time. Has not been vomiting. Abdominal Pain Score (Numeric/FACES): 4 - Related Data Allergies Allergy/AdvReac Type Severity Reaction Status Date / Time amoxicillin [From Augmentin] Allergy Severe Cannot Verified 11/19/19 14:19 Remember clavulanic acid Allergy Severe Cannot Verified 11/19/19 14:19 [From Augmentin] Remember Home Meds: Home Meds Chlorthalidone 12.5 mg PO DAILY 05/03/18 [History] Aspirin [Ecotrin EC] 81 mg PO DAILY 10/01/18 [History] Cholecalciferol (Vitamin D3) [Vitamin D3] 1,000 unit PO DAILY 10/01/18 [History] Losartan [Cozaar] 25 mg PO DAILY 10/01/18 [History] Oxybutynin Chloride [Ditropan Xl] 10 mg PO DAILY 10/01/18 [History] Rosuvastatin Calcium 20 mg PO DAILY 10/01/18 [History] Acetaminophen/oxyCODONE [Percocet 325-5 MG] 1 - 2 tab PO Q6H PRN #60 tablet 10/05/18 [Rx] Cyclobenzaprine [Flexeril] 5 mg PO BID PRN #10 tablet 10/05/18 [Rx] Docusate Sodium [Colace] 100 mg PO BID cap 10/05/18 [Rx] Famotidine [Pepcid] 20 mg PO Q12H tablet 10/05/18 [Rx] Nicotine [Nicotine Patch] 7 mg TD DAILY #20 patch 10/05/18 [Rx] Remove Patch 1 ea TRDERM Q72H PRN each 10/05/18 [Rx] Rivaroxaban [Xarelto] 10 mg PO DAILY #35 tablet 10/05/18 [Rx] Sennosides [Senna] 8.6 mg PO BID PRN tablet 10/05/18 [Rx] bisacodyL [Dulcolax] 5 mg PO DAILY PRN tablet 10/05/18 [Rx] Past Medical History HEENT History: Reports: Impaired Vision Other HEENT History: wears glasses Cardiovascular History: Reports: High Cholesterol, Hypertension Respiratory History: Reports: None Gastrointestinal History: Reports: Colon Polyp Other Gastrointestinal History: colitis Genitourinary History: Reports: Urinary Incontinence Other Genitourinary History: kidney cancer with surgery to remove, no chemo or radiation needed. 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 Endocrine/Metabolic History: Reports: Other (See Below) Other Endocrine/Metabolic History: borderline diabetic Hematologic History: Reports: Anticoagulation Therapy Immunologic History: Reports: None Oncologic (Cancer) History: Reports: Renal Dermatologic History: Reports: Other (See Below) Other Dermatologic History: skin lesion removal , skin grafting from knee - Past Surgical History Head Surgeries/Procedures: Reports: None GI Surgical History: Reports: Cholecystectomy, Colonoscopy, Polypectomy Female Surgical History: Reports: Hysterectomy, Tubal Ligation Musculoskeletal Surgical History: Reports: Hip Replacement Oncologic Surgical History: Reports: Other (See Below) Social & Family History - Family History Family Medical History: Noncontributory - Tobacco Use Tobacco Use Status *Q: Current Every Day Tobacco User Years of Tobacco use: 40 Packs/Tins Daily: 0.5 - Caffeine Use Caffeine Use: Reports: Coffee Other Caffeine Use: cappacinno now and then and a pop one every 2 months - Living Situation & Occupation Living situation: Reports: , Alone Occupation: Retired ED ROS GENERAL - Review of Systems Review Of Systems: See Below Constitutional: Reports: Chills. Denies: Fever HEENT: Reports: No Symptoms Respiratory: Reports: Cough (very occasional). Denies: Shortness of Breath, Pleuritic Chest Pain Cardiovascular: Denies: Chest Pain GI/Abdominal: Reports: Abdominal Pain (occasional cramps), Diarrhea. Denies: Nausea, Vomiting Musculoskeletal: Reports: No Symptoms Skin: Reports: No Symptoms Neurological: Reports: No Symptoms ED EXAM, NEURO - Physical Exam Exam: See Below General Appearance: Alert, No Apparent Distress Head Exam: Atraumatic Neck: Supple Respiratory/Chest: No Respiratory Distress, Lungs Clear. No: Rhonchi, Wheezing Cardiovascular: Regular Rate, Rhythm GI/Abdominal: Soft, Non-Tender Neurological: Alert, No Motor/Sensory Deficits, Oriented x 3 Extremities: Normal Inspection, Normal Range of Motion Skin Exam: Warm, Dry, Normal Color Course - Vital Signs Last Recorded V/S: Last Vital Signs Temp 98.1 F 12/19/19 12:43 Pulse 78 12/19/19 12:43 Resp 16 12/19/19 12:43 BP 155/78 H 12/19/19 12:43 Pulse Ox 97 12/19/19 12:43 - Orders/Labs/Meds Orders: Active Orders 24 hr Category Date Time Status CORONAVIRUS COVID-19 HOWIE [[facility]] Stat Lab 12/19/19 13:45 Ordered - Re-Assessments/Exams Free Text/Narrative Re-Assessment/Exam: 12/19/19 13:54 will do a covid screen to go to the state lab. Discharge instr. as documented. Departure - Departure Time of Disposition: 13:47 Disposition: Home, Self-Care 01 Condition: Fair Clinical Impression: Diarrhea - Discharge Information Referrals: Quin Sommers PA-C [Primary Care Provider] - Forms: ED Department Discharge Additional Instructions: Clear liquids as discussed, occasional bland food such as egg sandwich, banana or boiled potato. office support some probiotic which is a supplement available at a grocery store or at your pharmacy. Take that twice daily for 1 week. Covid s creen has been done. Self Isolate at home until that comes back. We will call you with results when available, usually one to 2 days. Follow up clinic if not back to normal within 5 to 7 days as expected. Sepsis Event Note (ED) - Evaluation Sepsis Screening Result: No Definite Risk - Focused Exam Vital Signs: Vital Signs Temp Pulse Resp BP Pulse Ox 12/19/19 12:43 98.1 F 78 16 155/78 H 97 - My Orders Last 24 Hours: My Active Orders 12/19/19 13:45 CORONAVIRUS COVID-19 HOWIE [[facility]] Stat - Assessment/Plan Last 24 Hours: My Active Orders 12/19/19 13:45 CORONAVIRUS COVID-19 HOWIE [[facility]] Stat
== END 2019-12-19 14:10 | disposition home or self-care (01) ==
LOC: JD.ED 12:33
DX: R19.7 Diarrhea, unspecified (principal); R05 Cough; R10.9 Unspecified abdominal pain; I10 Essential (primary) hypertension; E78.00 Pure hypercholesterolemia, unspecified; F17.210 Nicotine dependence, cigarettes, uncomplicated; Z20.828 Contact with and (suspected) exposure to other viral communicable diseases; Z79.01 Long term (current) use of anticoagulants; Z88.1 Allergy status to other antibiotic agents; Z79.82 Long term (current) use of aspirin; Z79.899 Other long term (current) drug therapy
CPT/HCPCS: 99284; U0002; 99282

== ENCOUNTER 2023-12-29 15:15 | Emergency (ER) | payer MEDICARE, BC ==
[2023-12-29 15:51] LABS: BASOPHILS ABSOLUTE AUTO 0.1 K/mm3 (0.0-0.2); BASOPHILS PERCENT AUTO 0.8 % (0.0-1.0); EOSINOPHILS ABSOLUTE AUTO 0.3 K/mm3 (0.0-0.4); EOSINOPHILS PERCENT AUTO 3.1 % (0.0-6.0); HEMATOCRIT 38.9 % (37.0-47.0); IMMATURE GRAN ABSOLUTE AUTO 0.02 K/mm3 (0.00-0.05); IMMATURE GRAN PERCENT AUTO 0.2 % (0.0-0.4); LYMPHOCYTES ABSOLUTE AUTO 2.2 K/mm3 (1.0-4.8); LYMPHOCYTES PERCENT AUTO 24.4 % (24.0-44.0); MEAN CORPUSCULAR HEMOGLOBIN 29.3 pg (28.0-32.0); MEAN CORPUSCULAR HGB CONC 33.4 g/dl (32.0-36.0); MEAN CORPUSCULAR VOLUME 87.8 fl (83.0-99.0); MEAN PLATELET VOLUME 9.9 fl (9.4-12.3); MONOCYTES ABSOLUTE AUTO 0.5 K/mm3 (0.0-0.8); MONOCYTES PERCENT AUTO 5.4 % (0.0-8.0); NEUTROPHILS PERCENT AUTO 66.1 % (41.0-71.0); PLATELET COUNT,PLT 242 K/mm3 (150-400); RED BLOOD CELL COUNT 4.43 M/mm3 (4.10-5.30); WHITE BLOOD CELL COUNT,WBC 9.04 K/mm3 (3.9-11.3)
[2023-12-29 16:20] LABS: A/G RATIO 0.8 (1-2); ALBUMIN 3.2 g/dl (3.4-5.0); ANION GAP 15.1 (5-15); BILIRUBIN TOTAL 0.5 mg/dL (0.2-1.0); CALCIUM 9.1 mg/dL (8.5-10.1); CREATININE 1.3 mg/dL (0.55-1.02); EST CRCL DRUG DOSING (CG) 28.55 mL/min; POTASSIUM,K 3.1 mEq/L (3.5-5.1); PROTEIN TOTAL,TP 7.2 g/dl (6.4-8.2)
[2023-12-29] MEDS: Potassium Chloride 20 MEQ Tab.ER PO ONE (17:20)
== END 2023-12-29 17:20 | disposition home or self-care (01) ==
LOC: JD.ED 15:15
DX: R19.5 Other fecal abnormalities (principal); E87.6 Hypokalemia; I10 Essential (primary) hypertension; E78.00 Pure hypercholesterolemia, unspecified; Z90.49 Acquired absence of other specified parts of digestive tract; Z90.710 Acquired absence of both cervix and uterus; Z88.0 Allergy status to penicillin; Z88.8 Allergy status to other drugs, medicaments and biological substances; Z79.01 Long term (current) use of anticoagulants; Z79.899 Other long term (current) drug therapy
CPT/HCPCS: 36415; 80053; 85025; 99284; A9270; 82272